=== PATIENT | male | born 1965 | race Caucasian/White ===

== ENCOUNTER 2019-11-03 00:28 | Inpatient (IN) | payer MEDICAID ==
[~2019-11-03] VITALS: Ht 177.8 cm; Wt 81.8 kg
[2019-11-03] VITALS (13 sets, daily range): BP systolic 86–143; BP diastolic 59–100
[~2019-11-03 00:28] MED LIST: FAMO-128 PO
[2019-11-03] MEDS ORDERED: methylPREDNISolone sod succ 125mg/2ml vial IV ONE (00:40)
[2019-11-03] MEDS ORDERED: furosemide 40mg/4ml inj IV ONE (00:40)
[2019-11-03] MEDS ORDERED: ipratropium/albuterol 3ml nebule NEB ONE (00:40)
[2019-11-03] MEDS ORDERED: levoFLOXACIN-Levaquin 750MG/D5 150 ML IV ONE (00:40)
[2019-11-03] MEDS ORDERED: NO HOME MEDS (00:41)
[2019-11-03 01:12] LABS: BASOPHILS % (AUTO) 0.2 % (0-1); EOSINOPHILS % (AUTO) 0.2 % (0-6); HEMATOCRIT 38.3 % (42.0-52.0); HEMOGLOBIN 12.5 g/dl (14.0-17.9); LYMPHOCYTES # (AUTO) 1.1 X10'3 (1.1-4.8); LYMPHOCYTES % (AUTO) 5.9 % (21-51); MEAN CORPUSCULAR HEMOGLOBIN 25.6 PG (27.0-31.0); MEAN CORPUSCULAR HGB CONC 32.8 g/dL (33.0-36.5); MEAN CORPUSCULAR VOLUME 78.1 FL (78-98); MEAN PLATELET VOLUME 6.7 FL (7.4-10.4); MONOCYTES # (AUTO) 1.8 X10'3 (0-0.9); MONOCYTES % (AUTO) 9.4 % (2-12); NEUTROPHILS # (AUTO) 16.1 X10'3 (1.8-7.7); NEUTROPHILS % (AUTO) 84.3 % (42-75); PLATELET COUNT 599 X10'3 (140-440); RED BLOOD COUNT 4.91 X10'6 (4.70-6.10); RED CELL DISTRIBUTION WIDTH 17.9 % (11.5-14.5); WHITE BLOOD COUNT 19.1 X10'3 (4.5-11.0)
[2019-11-03 01:12] LABS: CLARITY,URINE CLEAR (Clear); COLOR,URINE YELLOW (Yellow); GLUCOSE, URINE NEGATIVE (Neg); KETONES,URINE NEGATIVE (Neg); LEUKOCYTE ESTERASE ,URINE NEGATIVE (Neg); NITRITES, URINE NEGATIVE (Neg); OCCULT BLOOD,URINE NEGATIVE (Neg); PH,URINE 6.5 (4.8-8.0); PROTEIN,URINE 100 mg/dl (Neg); UROBILINOGEN,URINE >=8.0 E.U/dL (0.2-1.0)
[2019-11-03 01:17] LABS: UA COLLECTION TYPE URINAL
[2019-11-03 01:18] LABS: RBC,URINE 0-2 /HPF (0-2); WBC,URINE NONE SEEN /HPF (0-4)
[2019-11-03 01:19] LABS: BACTERIA,URINE NONE SEEN /HPF (Neg); SQUAMOUS EPITHELIAL CELL,UR FEW /LPF (FEW)
[2019-11-03 01:25] LABS: URINE AMPHETAMINE SCREEN NEGATIVE (Neg); URINE BARBITUATE SCREEN NEGATIVE (Neg); URINE BENZODIAZEPINES SCREEN NEGATIVE (Neg); URINE CANNABINOID SCREEN POSITIVE (Neg); URINE COCAINE SCREEN NEGATIVE (Neg); URINE METHADONE SCREEN NEGATIVE (Neg); URINE OPIATE SCREEN NEGATIVE (Neg); URINE PHENCYCLIDINE SCREEN NEGATIVE (Neg)
[2019-11-03 01:27] LABS: ALANINE AMINOTRANSFERASE 37 U/L (12-78); ALBUMIN 1.9 G/DL (3.4-5.0); ALBUMIN/GLOBULIN RATIO 0.3 (1.1-1.5); ALKALINE PHOSPHATASE 201 IU/L (46-116); ANION GAP 7 (8-16); ASPARTATE AMINO TRANSFERASE 28 U/L (10-37); BILIRUBIN,TOTAL 1.2 MG/DL (0.1-1.0); BLOOD UREA NITROGEN 15 MG/DL (7-18); BUN/CREATININE RATIO 16.9 (5.4-32.0); CALCIUM 8.5 MG/DL (8.5-10.1); CHLORIDE 101 MMOL/L (99-107); CREATININE 0.89 MG/DL (0.60-1.10); GLUCOSE 127 MG/DL (70-104); POTASSIUM 3.8 MMOL/L (3.5-5.1); SODIUM 136 MMOL/L (135-145); TOTAL CARBON DIOXIDE 27.9 MMOL/L (24-32); TOTAL PROTEIN 7.5 G/DL (6.4-8.2); eGFR 89 ML/MIN
[2019-11-03 01:33] LABS: D-DIMER 4.74 MG/L FEU (0-0.50); PARTIAL THROMBOPLASTIN TIME 27 SECONDS (22-32)
[2019-11-03 01:35] LABS: ABG HCO3 23.5 mmol/L (22.0-26.0); ABG OXYGEN SATURATION 89.7 % (95-98); ABG PCO2 (T) 31.2 mmHg (35.0-45.0); ABG PH (T) 7.495 (7.350-7.450); ABG PO2 (T) 52.2 mmHg (83-108); ALLEN'S TEST POSITIVE; FCOHb 1.9 % (0.5-1.5); FMetHb 0.1 % (0.3-1.12); FO2Hb 87.9 % (94-100)
[2019-11-03] MEDS ORDERED: iohexol 350MG/ML 100ml bottle IV ONE (01:49)
[2019-11-03] MEDS ORDERED: ondansetron/PF 4mg/2ml inj IV PRN (02:50)
[2019-11-03] MEDS ORDERED: magnesium hydroxide 30ml (MOM) UD suspension PO PRN (02:50)
[2019-11-03] MEDS ORDERED: acetaminophen 325mg tablet PO PRN ×2 (02:50)
[2019-11-03] MEDS ORDERED: morphine 2 MG/ML inj. syringe IV PRN ×2 (02:50)
[2019-11-03] MEDS ORDERED: potassium Cl 20 mEq SR tablet PO PRN ×2 (02:50)
[2019-11-03] MEDS ORDERED: magnesium 4gm in 100ml NS 100 ML IV PRN (02:50)
[2019-11-03] MEDS ORDERED: potassium CL 10mEq/100ml bag 100 ML IV PRN ×2 (02:50)
[2019-11-03] MEDS ORDERED: mag hydrox/Alum hydrox/simeth 30ml oral suspension PO PRN (02:50)
[2019-11-03] MEDS ORDERED: magnesium 2GM in 50ml NS 50 ML IV PRN (02:50)
[2019-11-03] MEDS ORDERED: magnesium Cl slow-release 64mg tablet PO PRN (02:50)
[2019-11-03] MEDS ORDERED: ipratropium/albuterol 3ml nebule NEB PRN (03:00)
--- NOTE | 2019-11-03 04:30 | NUR ---
Patient in room PCU 3023. I have received report from Ismael ABREU by telephone from the ER and had the opportunity to ask questions and assume patient care.
--- NOTE | 2019-11-03 05:00 | NUR ---
Patient stable, with all belongings at bedside, and able to ambulate to the bed. Will continue to monitor.
--- NOTE | 2019-11-03 06:35 | NUR ---
Patient in room PCU 3023. I have received report from BRADY Lane and had the opportunity to ask questions and assume patient care.
--- NOTE | 2019-11-03 06:52 | NUR ---
Problems reprioritized. Patient report given, questions answered & plan of care reviewed with Mary ABREU.
[2019-11-03] MEDS: ipratropium/albuterol 3ml nebule NEB SCH ×3 (07:08→19:34)
[2019-11-03] MEDS: predniSONE 20 mg tablet PO SCH (07:46)
[2019-11-03] MEDS: lactobacillus rhamnosus 10,000 MMU CELLS/CAPSULE PO SCH ×2 (07:47→21:44)
[2019-11-03] MEDS: K and/or MAG REPLACEMENT MC SCH ×2 (08:00→21:05)
[2019-11-03] MEDS: enoxaparin 40mg/0.4ml syringe SQ SCH (08:00)
--- NOTE | 2019-11-03 08:00 | NUR ---
Held patient's dose of Lovenox per IR's orders, due to procedure (thoracentesis) being scheduled. aware.
--- NOTE | 2019-11-03 09:16 | NUR ---
Patient ambulated to restroom without problem. Cardiopulmonary at bedside to do Echo.
[2019-11-03] MEDS ORDERED: FLU VACC QS2019-20 36MOS UP/PF 60 MCG/0.5 ML SYRINGE IMVAC ONE (12:30)
[2019-11-03] MEDS ORDERED: pneumococcal 23-VAL P-sac vacc 25 mcg/0.5ml vial IMVAC ONE (12:30)
[2019-11-03 15:15] LABS: LDH,BODY FLUID 524 U/L; TOTAL PROTEIN,BODY FLUID 4.2 G/DL
--- NOTE | 2019-11-03 15:17 | NUR ---
Paged Dr Wood... MESSAGE: Re: Kal Charlton Rm [id number] FYI Per lab the fluid specimen was not on ice, and received 2 hours after collection, so the BF PH was not able to be ran. Thanks Mary [phone]
[2019-11-03 15:18] LABS: GLUCOSE,BODY FLUID 0 MG/DL
[2019-11-03 16:17] LABS: BFAPPEAR TURBID
[2019-11-03 16:18] LABS: BF RBC COUNT 2700 /CU MM; BF WBC COUNT 25750 /CU MM (0-1000); BFCOLOR YELLOW; BFVOLUME 60 ML; LYMPHOCYTES,BODY FLUID 1 %; MONOCYTES,BODY FLUID 1 %; NEUTROPHILS,BODY FLUID 98 %
--- NOTE | 2019-11-03 19:11 | NUR ---
Student Medication Administration: For this medication-pass time frame, all medication were reviewed, dispensed, administered and documented per hospital policy by Delia.
--- NOTE | 2019-11-03 19:11 | NUR ---
Student documentation: I have reviewed and agree with all interventions, assessments performed and documented by BRADY Lin. Addendum: 11/03/19 at 1912 by Mary De León RN Student documentation: I have reviewed and agree with all interventions, assessments performed and documented by Delia.
--- NOTE | 2019-11-03 19:12 | NUR ---
Problems reprioritized. Patient report given, questions answered & plan of care reviewed with BRADY Foss.
[2019-11-03] MEDS: furosemide 20 MG/2 ML vial IV SCH (21:44)
[2019-11-04 02:30] VITALS: BP 121/86
[2019-11-04 06:00] VITALS: BP 135/94
[2019-11-04 06:01] LABS: BASOPHILS % (AUTO) 0.2 % (0-1); EOSINOPHILS % (AUTO) 0 % (0-6); HEMATOCRIT 35.3 % (42.0-52.0); HEMOGLOBIN 11.4 g/dl (14.0-17.9); LYMPHOCYTES # (AUTO) 1.6 X10'3 (1.1-4.8); LYMPHOCYTES % (AUTO) 9.6 % (21-51); MEAN CORPUSCULAR HEMOGLOBIN 25.1 PG (27.0-31.0); MEAN CORPUSCULAR HGB CONC 32.2 g/dL (33.0-36.5); MEAN CORPUSCULAR VOLUME 78.2 FL (78-98); MEAN PLATELET VOLUME 6.8 FL (7.4-10.4); MONOCYTES # (AUTO) 1.4 X10'3 (0-0.9); MONOCYTES % (AUTO) 8.2 % (2-12); PLATELET COUNT 572 X10'3 (140-440); RED BLOOD COUNT 4.52 X10'6 (4.70-6.10); RED CELL DISTRIBUTION WIDTH 18.6 % (11.5-14.5)
[2019-11-04 06:10] LABS: ALBUMIN 1.7 G/DL (3.4-5.0); ANION GAP 6 (8-16); BLOOD UREA NITROGEN 23 MG/DL (7-18); CALCIUM 8.5 MG/DL (8.5-10.1); CHLORIDE 105 MMOL/L (99-107); CREATININE 0.96 MG/DL (0.60-1.10); GLUCOSE 108 MG/DL (70-104); MAGNESIUM 1.9 MG/DL (1.5-2.4); POTASSIUM 3.7 MMOL/L (3.5-5.1); SODIUM 141 MMOL/L (135-145); TOTAL CARBON DIOXIDE 30.2 MMOL/L (24-32); eGFR 81 ML/MIN
--- NOTE | 2019-11-04 06:23 | NUR ---
Problems reprioritized. Patient report given, questions answered & plan of care reviewed with Mary ABREU.
--- NOTE | 2019-11-04 06:40 | NUR ---
Patient in room PCU 3023C. I have received report from Prudence ABREU and had the opportunity to ask questions and assume patient care. Patient laying in bed, eyes closed, left chest tube to suction at 20.
[2019-11-04 06:45] LABS: ANISOCYTOSIS 2+; MICROCYTOSIS 1+; PLATELET ESTIMATE INCREASED; POLYCHROMASIA 1+
[2019-11-04] MEDS: K and/or MAG REPLACEMENT MC SCH ×2 (08:00→20:00)
[2019-11-04] MEDS: levoFLOXACIN-Levaquin 750MG/D5 150 ML IV SCH (08:50)
[2019-11-04] MEDS: furosemide 20 MG/2 ML vial IV SCH ×2 (08:50→20:19)
[2019-11-04] MEDS: predniSONE 20 mg tablet PO SCH (08:51)
[2019-11-04] MEDS: lactobacillus rhamnosus 10,000 MMU CELLS/CAPSULE PO SCH ×2 (08:51→20:16)
[2019-11-04] MEDS: enoxaparin 40mg/0.4ml syringe SQ SCH (08:51)
[2019-11-04] MEDS: ipratropium/albuterol 3ml nebule NEB SCH ×3 (09:08→20:19)
[2019-11-04 11:00] VITALS: BP 133/92
[2019-11-04 15:00] VITALS: BP 130/90
[2019-11-04 18:00] VITALS: BP 127/88
--- NOTE | 2019-11-04 18:22 | NUR ---
Problems reprioritized. Patient report given, questions answered & plan of care reviewed with Lakeisha ABREU.
--- NOTE | 2019-11-04 18:43 | NUR ---
Patient in room PCU 3023. I have received report from BRADY Hernandez and had the opportunity to ask questions and assume patient care.
[2019-11-04] MEDS: metoprolol tartrate 12.5mg (1/2 tablet) PO SCH (20:15)
[2019-11-04 23:00] VITALS: BP 117/82
[2019-11-05 04:17] VITALS: BP 134/94
[2019-11-05 05:56] LABS: BASOPHILS # (AUTO) 0.1 X10'3 (0-0.2); BASOPHILS % (AUTO) 0.4 % (0-1); EOSINOPHILS % (AUTO) 0.1 % (0-6); HEMATOCRIT 33.7 % (42.0-52.0); HEMOGLOBIN 10.9 g/dl (14.0-17.9); LYMPHOCYTES # (AUTO) 1.9 X10'3 (1.1-4.8); LYMPHOCYTES % (AUTO) 13.1 % (21-51); MEAN CORPUSCULAR HEMOGLOBIN 25.7 PG (27.0-31.0); MEAN CORPUSCULAR HGB CONC 32.5 g/dL (33.0-36.5); MEAN CORPUSCULAR VOLUME 79.2 FL (78-98); MEAN PLATELET VOLUME 6.6 FL (7.4-10.4); MONOCYTES # (AUTO) 1.3 X10'3 (0-0.9); MONOCYTES % (AUTO) 8.9 % (2-12); NEUTROPHILS # (AUTO) 11.6 X10'3 (1.8-7.7); NEUTROPHILS % (AUTO) 77.5 % (42-75); PLATELET COUNT 545 X10'3 (140-440); RED BLOOD COUNT 4.25 X10'6 (4.70-6.10); RED CELL DISTRIBUTION WIDTH 18.3 % (11.5-14.5); WHITE BLOOD COUNT 14.9 X10'3 (4.5-11.0)
[2019-11-05 06:00] VITALS: BP 138/101
--- NOTE | 2019-11-05 06:05 | NUR ---
Problems reprioritized. Patient report given, questions answered & plan of care reviewed with BRADY Hernandez.
[2019-11-05 06:35] LABS: ALBUMIN 1.7 G/DL (3.4-5.0); ANION GAP 6 (8-16); BLOOD UREA NITROGEN 22 MG/DL (7-18); BUN/CREATININE RATIO 24.7 (5.4-32.0); CALCIUM 8.1 MG/DL (8.5-10.1); CHLORIDE 104 MMOL/L (99-107); CREATININE 0.89 MG/DL (0.60-1.10); GLUCOSE 95 MG/DL (70-104); MAGNESIUM 1.9 MG/DL (1.5-2.4); POTASSIUM 3.5 MMOL/L (3.5-5.1); SODIUM 141 MMOL/L (135-145); TOTAL CARBON DIOXIDE 30.7 MMOL/L (24-32); eGFR 89 ML/MIN
--- NOTE | 2019-11-05 06:45 | NUR ---
Patient in room PCU 3023C. I have received report from Lakeisha ABREU and had the opportunity to ask questions and assume patient care. Pt laying in bed, eyes closed, no signs of distress, left chest tube to suction at 20.
[2019-11-05] MEDS: K and/or MAG REPLACEMENT MC SCH ×2 (08:00→20:00)
[2019-11-05] MEDS: furosemide 20 MG/2 ML vial IV SCH ×2 (08:58→20:17)
[2019-11-05] MEDS: metoprolol tartrate 12.5mg (1/2 tablet) PO SCH ×2 (08:59→20:17)
[2019-11-05] MEDS: levoFLOXACIN-Levaquin 750MG/D5 150 ML IV SCH (08:59)
[2019-11-05] MEDS: lactobacillus rhamnosus 10,000 MMU CELLS/CAPSULE PO SCH ×2 (08:59→20:18)
[2019-11-05] MEDS: enoxaparin 40mg/0.4ml syringe SQ SCH (09:00)
[2019-11-05] MEDS: predniSONE 20 mg tablet PO SCH (09:00)
[2019-11-05] MEDS: ipratropium/albuterol 3ml nebule NEB SCH ×3 (09:12→20:26)
[2019-11-05 11:00] VITALS: BP 129/88
[2019-11-05 15:00] VITALS: BP 140/92
[2019-11-05 18:00] VITALS: BP 152/110
--- NOTE | 2019-11-05 18:20 | NUR ---
Problems reprioritized. Patient report given, questions answered & plan of care reviewed with Sully ABREU. Pt sitting up in chair at bedside, left chest tube to suction at 20.
[2019-11-05 22:00] VITALS: BP 128/89
[2019-11-06] VITALS (7 sets, daily range): BP systolic 110–145; BP diastolic 64–108
[2019-11-06 06:01] LABS: EOSINOPHILS % (AUTO) 0.2 % (0-6); HEMOGLOBIN 11.7 g/dl (14.0-17.9); MEAN CORPUSCULAR HEMOGLOBIN 24.9 PG (27.0-31.0); MEAN CORPUSCULAR HGB CONC 31.7 g/dL (33.0-36.5); MEAN CORPUSCULAR VOLUME 78.6 FL (78-98); MEAN PLATELET VOLUME 6.5 FL (7.4-10.4)
[2019-11-06 06:05] LABS: BASOPHILS % (AUTO) 0.3 % (0-1); HEMATOCRIT 36.8 % (42.0-52.0); LYMPHOCYTES % (AUTO) 15.4 % (21-51); MONOCYTES # (AUTO) 1.1 X10'3 (0-0.9); MONOCYTES % (AUTO) 8.1 % (2-12); PLATELET COUNT 630 X10'3 (140-440); RED BLOOD COUNT 4.69 X10'6 (4.70-6.10); WHITE BLOOD COUNT 13.1 X10'3 (4.5-11.0)
[2019-11-06 06:14] LABS: ALBUMIN 1.8 G/DL (3.4-5.0); ANION GAP 5 (8-16); BLOOD UREA NITROGEN 20 MG/DL (7-18); BUN/CREATININE RATIO 25.3 (5.4-32.0); CALCIUM 8.4 MG/DL (8.5-10.1); CHLORIDE 103 MMOL/L (99-107); CREATININE 0.79 MG/DL (0.60-1.10); GLUCOSE 89 MG/DL (70-104); MAGNESIUM 1.8 MG/DL (1.5-2.4); POTASSIUM 3.9 MMOL/L (3.5-5.1); SODIUM 139 MMOL/L (135-145); TOTAL CARBON DIOXIDE 31.3 MMOL/L (24-32); eGFR > 90 ML/MIN
--- NOTE | 2019-11-06 06:33 | NUR ---
Problems reprioritized. Patient report given, questions answered & plan of care reviewed with Mary ABREU.
--- NOTE | 2019-11-06 06:34 | NUR ---
Patient in room PCU 3023. I have received report from Sully ABREU and had the opportunity to ask questions and assume patient care.
[2019-11-06] MEDS: levoFLOXACIN-Levaquin 750MG/D5 150 ML IV SCH (07:27)
[2019-11-06] MEDS: lactobacillus rhamnosus 10,000 MMU CELLS/CAPSULE PO SCH ×2 (07:28→20:46)
[2019-11-06] MEDS: enoxaparin 40mg/0.4ml syringe SQ SCH (07:28)
[2019-11-06] MEDS: predniSONE 20 mg tablet PO SCH (07:28)
[2019-11-06] MEDS: furosemide 20 MG/2 ML vial IV SCH (07:29)
[2019-11-06] MEDS: metoprolol tartrate 12.5mg (1/2 tablet) PO SCH ×2 (07:29→20:46)
[2019-11-06] MEDS: ipratropium/albuterol 3ml nebule NEB SCH ×3 (07:57→21:28)
[2019-11-06] MEDS: K and/or MAG REPLACEMENT MC SCH ×2 (08:00→20:00)
[2019-11-06 08:22] LABS: ANISOCYTOSIS 1+; MICROCYTOSIS 1+; PLATELET ESTIMATE INCREASED; TOTAL CELLS COUNTED 100
[2019-11-06 08:23] LABS: POLYCHROMASIA FEW
[2019-11-06] MEDS: furosemide 20MG tablet PO SCH (10:53)
--- NOTE | 2019-11-06 18:25 | NUR ---
Patient in room U 3023. I have received report from Mary Redding RN and had the opportunity to ask questions and assume patient care. Patient is sitting at beside, he just finished dinner. Will continue to monitor.
--- NOTE | 2019-11-06 18:31 | NUR ---
Problems reprioritized. Patient report given, questions answered & plan of care reviewed with BRADY Carson. All patient's needs met at this time.
[2019-11-07 03:00] VITALS: BP 139/97
[2019-11-07] MEDS: HYDROcodone/acetaminophen 5mg/325mg tablet PO PRN ×2 (04:11→09:57)
[2019-11-07 06:00] VITALS: BP 124/92
--- NOTE | 2019-11-07 06:10 | NUR ---
Patient in room PCU 3023. I have received report from Yamileth ABREU and had the opportunity to ask questions and assume patient care.
--- NOTE | 2019-11-07 06:17 | NUR ---
Problems reprioritized. Patient report given, questions answered & plan of care reviewed with Jonathan ABREU.
[2019-11-07 06:34] LABS: EOSINOPHILS % (AUTO) 0.3 % (0-6); MEAN PLATELET VOLUME 6.5 FL (7.4-10.4); WHITE BLOOD COUNT 15.4 X10'3 (4.5-11.0)
[2019-11-07 06:37] LABS: BASOPHILS # (AUTO) 0.1 X10'3 (0-0.2); BASOPHILS % (AUTO) 0.5 % (0-1); HEMOGLOBIN 12.6 g/dl (14.0-17.9); LYMPHOCYTES # (AUTO) 2.6 X10'3 (1.1-4.8); MEAN CORPUSCULAR HEMOGLOBIN 25.3 PG (27.0-31.0); MEAN CORPUSCULAR HGB CONC 32.4 g/dL (33.0-36.5); MEAN CORPUSCULAR VOLUME 78.1 FL (78-98); MONOCYTES # (AUTO) 1.3 X10'3 (0-0.9); MONOCYTES % (AUTO) 8.7 % (2-12); NEUTROPHILS # (AUTO) 11.3 X10'3 (1.8-7.7); NEUTROPHILS % (AUTO) 73.5 % (42-75); PLATELET COUNT 642 X10'3 (140-440); RED BLOOD COUNT 4.99 X10'6 (4.70-6.10); RED CELL DISTRIBUTION WIDTH 18.2 % (11.5-14.5)
[2019-11-07 06:56] LABS: ALBUMIN 1.9 G/DL (3.4-5.0); ANION GAP 6 (8-16); BLOOD UREA NITROGEN 25 MG/DL (7-18); BUN/CREATININE RATIO 29.1 (5.4-32.0); CALCIUM 8.2 MG/DL (8.5-10.1); CHLORIDE 103 MMOL/L (99-107); CREATININE 0.86 MG/DL (0.60-1.10); GLUCOSE 88 MG/DL (70-104); MAGNESIUM 1.8 MG/DL (1.5-2.4); POTASSIUM 3.8 MMOL/L (3.5-5.1); SODIUM 140 MMOL/L (135-145); TOTAL CARBON DIOXIDE 31.5 MMOL/L (24-32); eGFR > 90 ML/MIN
[2019-11-07] MEDS: lactobacillus rhamnosus 10,000 MMU CELLS/CAPSULE PO SCH (07:15)
[2019-11-07] MEDS: furosemide 20MG tablet PO SCH (07:15)
[2019-11-07] MEDS: enoxaparin 40mg/0.4ml syringe SQ SCH (07:16)
[2019-11-07] MEDS: metoprolol tartrate 12.5mg (1/2 tablet) PO SCH (07:16)
[2019-11-07] MEDS: levoFLOXACIN-Levaquin 750MG/D5 150 ML IV SCH (07:16)
[2019-11-07] MEDS: K and/or MAG REPLACEMENT MC SCH (08:00)
[2019-11-07] MEDS ORDERED: predniSONE 20 mg tablet PO SCH (08:00)
[2019-11-07] MEDS: ipratropium/albuterol 3ml nebule NEB SCH ×2 (08:19→13:42)
--- NOTE | 2019-11-07 10:47 | NUR ---
Initial: Patient presented to ED with bilateral pneumonia, empyema, and tachycardia with shortness of breath resolved per MD note. Eating well, 100% PO intake heart healthy diet with fluid restriction of 2 liters per day PO per MD note. Patient is meeting needs with current PO intake. Will continue to follow. Recommend: 1. continue heart healthy diet, fluid restriction per MD 2. weight per rx 3. monitor PO intake 4. bowel care as needed Addendum: 11/07/19 at [address] Amended: Links added.
[2019-11-07 11:00] VITALS: BP 113/78
--- NOTE | 2019-11-07 12:45 | NUR ---
PAGER ID: [phone] MESSAGE: Re: Kal Charlton, Room: [facility] [place], [place]. Chest tube removed and post chest x-ray resulted. -[facility] #[id number] Dr. Rapp paged concerning
[2019-11-07] MEDS ORDERED: FURO-150 PO (13:40)
[2019-11-07] MEDS ORDERED: METO25TA6 PO (13:40)
[2019-11-07] MEDS ORDERED: LISI2.5T2 PO (13:41)
[2019-11-07] MEDS ORDERED: LEVO750T21 PO (13:45)
--- NOTE | 2019-11-07 15:40 | NUR ---
Pt DC'd home. IV removed, canula intact. Te;e-box removed and returned to tele-tech. Pt alert and oriented and vitals WNL at DC. DC paperwork gone over with Pt, allowed Pt to ask question concerning DC and then answered them. New medications called into [facility] in [facility]. Pt will return to [facility] to have a CBC drawn and a chest x-ray on Sunday11/10/19. Pt will make follow up appt with PCP at [facility] in [facility]. Pt's belongings gathered and sent with Pt. Pt wheeled down to lobby/car in wheelchair by student nurse. Pt left in private vehicle for home.
== END 2019-11-07 15:40 | disposition home or self-care (01) | DRG 139 ==
LOC: ER 00:29 → ED HOLD 02:59 → PCU 3S 05:35
PROVIDERS: ADMIT Hospitalist; ATTEND Family Medicine
PROC: BW241ZZ Computerized Tomography (CT Scan) of Chest and Abdomen using Low Osmolar Contrast (ICD-10-PCS; principal; 2019-11-03)
PROC: 0W9B30Z Drainage of Left Pleural Cavity with Drainage Device, Percutaneous Approach (ICD-10-PCS; 2019-11-03)
PROC: 3E02340 Introduction of Influenza Vaccine into Muscle, Percutaneous Approach (ICD-10-PCS; 2019-11-05)
PROC: 3E0234Z Introduction of Serum, Toxoid and Vaccine into Muscle, Percutaneous Approach (ICD-10-PCS; 2019-11-05)
DX: J15.4 Pneumonia due to other streptococci (principal); J86.9 Pyothorax without fistula; F12.90 Cannabis use, unspecified, uncomplicated; I50.20 Unspecified systolic (congestive) heart failure; T38.0X5A Adverse effect of glucocorticoids and synthetic analogues, initial encounter; R59.9 Enlarged lymph nodes, unspecified; J91.8 Pleural effusion in other conditions classified elsewhere; D64.9 Anemia, unspecified; Z23 Encounter for immunization; Z87.891 Personal history of nicotine dependence; Y92.89 Other specified places as the place of occurrence of the external cause; Z86.711 Personal history of pulmonary embolism; Z86.718 Personal history of other venous thrombosis and embolism
CPT/HCPCS: 32557; 36415; 36600; 71045; 71275; 80048; 80053; 80305; 81001; 82803; 82945; 83605; 83615; 83735; 83880; 84145; 84157; 84443; 84484; 85018; 85025; 85379; 85610; 85730; 87040; 87070; 87077; 87081; 87186; 89051; 93005; 93306; 93970; 94640; 94760; 96365; 96375; 99285; G0378; J1650; J1940; J1956; J2930; J7512; Q2037; Q9967

== ENCOUNTER 2020-03-05 12:47 | Inpatient (IN) | payer MEDICAID ==
[~2020-03-05] VITALS: Ht 177.8 cm; Wt 84.0 kg
[~2020-03-05 12:47] MED LIST changes: -FAMO-128 PO; +FURO-150 PO; +LISI2.5T2 PO; +METO25TA6 PO
[2020-03-05 13:26] LABS: BASOPHILS # (AUTO) 0.1 X10'3 (0-0.2); BASOPHILS % (AUTO) 0.7 % (0-1); EOSINOPHILS % (AUTO) 0.5 % (0-6); HEMOGLOBIN 11.6 g/dl (14.0-17.9); LYMPHOCYTES # (AUTO) 1.3 X10'3 (1.1-4.8); LYMPHOCYTES % (AUTO) 15.8 % (21-51); MEAN CORPUSCULAR HEMOGLOBIN 23.4 PG (27.0-31.0); MEAN CORPUSCULAR HGB CONC 31.5 g/dL (33.0-36.5); MEAN CORPUSCULAR VOLUME 74.4 FL (78-98); MONOCYTES # (AUTO) 0.9 X10'3 (0-0.9); MONOCYTES % (AUTO) 11.6 % (2-12); NEUTROPHILS # (AUTO) 5.8 X10'3 (1.8-7.7); NEUTROPHILS % (AUTO) 71.4 % (42-75); PLATELET COUNT 301 X10'3 (140-440); RED BLOOD COUNT 4.97 X10'6 (4.70-6.10); RED CELL DISTRIBUTION WIDTH 18.7 % (11.5-14.5); WHITE BLOOD COUNT 8.2 X10'3 (4.5-11.0)
[2020-03-05 13:41] LABS: ALANINE AMINOTRANSFERASE 25 U/L (12-78); ALBUMIN 2.9 G/DL (3.4-5.0); ALBUMIN/GLOBULIN RATIO 0.7 (1.1-1.5); ALKALINE PHOSPHATASE 148 IU/L (46-116); ANION GAP 8 (8-16); ASPARTATE AMINO TRANSFERASE 22 U/L (10-37); BILIRUBIN,TOTAL 1.3 MG/DL (0.1-1.0); BLOOD UREA NITROGEN 19 MG/DL (7-18); CALCIUM 8.3 MG/DL (8.5-10.1); CHLORIDE 110 MMOL/L (99-107); CREATININE 1.12 MG/DL (0.60-1.10); GLUCOSE 116 MG/DL (70-104); POTASSIUM 3.6 MMOL/L (3.5-5.1); SODIUM 144 MMOL/L (135-145); TOTAL CARBON DIOXIDE 25.9 MMOL/L (24-32); TOTAL PROTEIN 7.2 G/DL (6.4-8.2); eGFR 68 ML/MIN
[2020-03-05] MEDS ORDERED: furosemide 10 MG/1 ML 10ml inj IV ONE (13:55)
[2020-03-05] MEDS ORDERED: nitroGLYCERIN 0.4mg SUBLingual tab SL ONE (13:55)
[2020-03-05] MEDS ORDERED: nitroGLYCERIN 0.4mg SUBLingual tab SL SCH (13:55)
[2020-03-05] MEDS ORDERED: NO HOME MEDS (14:05)
--- NOTE | 2020-03-05 14:11 | NUR ---
updated vitals, gave lasix and nitro, will continue to monitor
[2020-03-05 14:21] LABS: ETHANOL < 0.010 GM/DL (0.0-0.010)
[2020-03-05 14:57] LABS: CLARITY,URINE CLEAR (Clear); COLOR,URINE YELLOW (Yellow); GLUCOSE, URINE NEGATIVE (Neg); KETONES,URINE NEGATIVE (Neg); LEUKOCYTE ESTERASE ,URINE NEGATIVE (Neg); NITRITES, URINE NEGATIVE (Neg); OCCULT BLOOD,URINE NEGATIVE (Neg); PH,URINE 6.5 (4.8-8.0); PROTEIN,URINE 30 mg/dl (Neg)
[2020-03-05] MEDS ORDERED: mag hydrox/Alum hydrox/simeth 30ml oral suspension PO ONE (15:00)
[2020-03-05 15:02] LABS: UA COLLECTION TYPE CLN CATCH MIDSTREAM
[2020-03-05 15:03] LABS: URINE AMPHETAMINE SCREEN NEGATIVE (Neg); URINE BARBITUATE SCREEN NEGATIVE (Neg); URINE BENZODIAZEPINES SCREEN NEGATIVE (Neg); URINE CANNABINOID SCREEN POSITIVE (Neg); URINE COCAINE SCREEN NEGATIVE (Neg); URINE METHADONE SCREEN NEGATIVE (Neg); URINE OPIATE SCREEN NEGATIVE (Neg); URINE PHENCYCLIDINE SCREEN NEGATIVE (Neg)
[2020-03-05 15:04] LABS: BACTERIA,URINE FEW /HPF (Neg); MUCUS STRANDS FEW /LPF (Neg); RBC,URINE 0-2 /HPF (0-2); SQUAMOUS EPITHELIAL CELL,UR FEW /LPF (FEW); WBC,URINE 0-4 /HPF (0-4)
[2020-03-05] MEDS ORDERED: mag hydrox/Alum hydrox/simeth 30ml oral suspension PO PRN (15:10)
[2020-03-05] MEDS ORDERED: HYDROcodone/acetaminophen 5mg/325mg tablet PO PRN (15:10)
[2020-03-05] MEDS ORDERED: ondansetron/PF 4mg/2ml inj IV PRN (15:10)
[2020-03-05] MEDS ORDERED: magnesium hydroxide 30ml (MOM) UD suspension PO PRN (15:10)
[2020-03-05] MEDS ORDERED: morphine 2 MG/ML inj. syringe IV PRN ×2 (15:10)
[2020-03-05] MEDS ORDERED: acetaminophen 325mg tablet PO PRN ×2 (15:10)
[2020-03-05 15:31] LABS: MICROCYTOSIS 1+; PLATELET ESTIMATE NORMAL
[2020-03-05 15:32] LABS: ANISOCYTOSIS 2+; HYPOCHROMASIA 1+
[2020-03-05 15:33] LABS: POLYCHROMASIA FEW
--- NOTE | 2020-03-05 16:40 | NUR ---
Received report from estevan RN in the er. Had the opportunity to ask questions. Awaiting patients arrival.
[2020-03-05 17:15] VITALS: BP 166/110
--- NOTE | 2020-03-05 17:15 | NUR ---
Patient has arrived from ER, awake an alert. Vitals O2 99%, HR 98, BP 166/110, RR 18, pain 0 Temp 98.8 MRSA nasal swab obtained. Patient questions have been answered. Patient placed on tele monitor.
--- NOTE | 2020-03-05 17:58 | NUR ---
Orientee documentation: I have reviewed and agree with all interventions, assessments performed and documented by BRADY Starr.
[2020-03-05 18:00] VITALS: BP 169/112
--- NOTE | 2020-03-05 18:30 | NUR ---
Problems reprioritized. Patient report given, questions answered & plan of care reviewed with BRADY Cano. Patient stable at transfer of care.
--- NOTE | 2020-03-05 18:57 | NUR ---
Patient in room [place] [address]. I have received report from Jonathan ABREU and had the opportunity to ask questions and assume patient care. Addendum: 03/05/20 at 1900 by Rachael Scott RN Patient in room [place] [address]. I have received report from Ro ABREU and had the opportunity to ask questions and assume patient care. Correction for above nurse to nurse report.
[2020-03-05] MEDS: metoprolol tartrate 50mg tablet PO SCH (19:18)
[2020-03-05] MEDS: furosemide 20 MG/2 ML vial IV SCH (19:19)
[2020-03-05] MEDS: HYDROcodone/acetaminophen 10/325mg tab PO PRN (19:20)
[2020-03-05 22:00] VITALS: BP 133/102
[2020-03-06] MEDS: HYDROcodone/acetaminophen 10/325mg tab PO PRN (00:42)
[2020-03-06 01:39] LABS: BASOPHILS # (AUTO) 0.1 X10'3 (0-0.2); EOSINOPHILS # (AUTO) 0.1 X10'3 (0-0.9); EOSINOPHILS % (AUTO) 0.8 % (0-6); LYMPHOCYTES # (AUTO) 1.6 X10'3 (1.1-4.8); LYMPHOCYTES % (AUTO) 17.6 % (21-51); MEAN PLATELET VOLUME 7.1 FL (7.4-10.4); MONOCYTES # (AUTO) 1.3 X10'3 (0-0.9); MONOCYTES % (AUTO) 13.8 % (2-12); NEUTROPHILS # (AUTO) 6.1 X10'3 (1.8-7.7); NEUTROPHILS % (AUTO) 66.8 % (42-75); PLATELET COUNT 284 X10'3 (140-440); RED BLOOD COUNT 5.14 X10'6 (4.70-6.10); WHITE BLOOD COUNT 9.2 X10'3 (4.5-11.0)
[2020-03-06 01:50] LABS: ALBUMIN 2.8 G/DL (3.4-5.0); ANION GAP 6 (8-16); BLOOD UREA NITROGEN 23 MG/DL (7-18); BUN/CREATININE RATIO 19.3 (5.4-32.0); CALCIUM 8.3 MG/DL (8.5-10.1); CHLORIDE 107 MMOL/L (99-107); CREATININE 1.19 MG/DL (0.60-1.10); GLUCOSE 108 MG/DL (70-104); POTASSIUM 3.6 MMOL/L (3.5-5.1); SODIUM 144 MMOL/L (135-145); TOTAL CARBON DIOXIDE 30.6 MMOL/L (24-32); eGFR 63 ML/MIN
[2020-03-06 02:10] LABS: HEMATOCRIT 38.1 % (42.0-52.0); HEMOGLOBIN 12.5 g/dl (14.0-17.9); MEAN CORPUSCULAR HEMOGLOBIN 24.2 PG (27.0-31.0); MEAN CORPUSCULAR HGB CONC 32.7 g/dL (33.0-36.5); MEAN CORPUSCULAR VOLUME 74.2 FL (78-98); RED CELL DISTRIBUTION WIDTH 18.3 % (11.5-14.5)
[2020-03-06 04:16] LABS: ANISOCYTOSIS 2+; HYPOCHROMASIA 1+; MICROCYTOSIS 1+; PLATELET ESTIMATE NORMAL; POLYCHROMASIA FEW
[2020-03-06 06:00] VITALS: BP 144/79
--- NOTE | 2020-03-06 06:14 | NUR ---
Problems reprioritized. Patient report given, questions answered & plan of care reviewed with Yuni ABREU.
--- NOTE | 2020-03-06 06:30 | NUR ---
Patient in room PCU 3026. I have received report from Rachael ABREU and had the opportunity to ask questions and assume patient care.
[2020-03-06] MEDS ORDERED: nitroGLYCERIN 0.4mg/hour patch TD SCH (08:00)
[2020-03-06] MEDS: lisinopril 10 MG tablet PO SCH (08:17)
[2020-03-06] MEDS: metoprolol tartrate 50mg tablet PO SCH ×2 (08:17→19:55)
[2020-03-06] MEDS: enoxaparin 40mg/0.4ml syringe SUBCUT SCH (08:18)
[2020-03-06] MEDS: furosemide 20 MG/2 ML vial IV SCH ×2 (08:37→19:54)
[2020-03-06 08:39] VITALS: BP 144/79
[2020-03-06 10:44] LABS: OCCULT BLOOD STOOL NEGATIVE (Neg)
[2020-03-06 11:00] VITALS: BP 111/75
--- NOTE | 2020-03-06 11:34 | NUR ---
received orders from Dr. Herrera for Vascular Ultrasound to E for swelling, Paged Vascular, will continue to monitor.
[2020-03-06 15:00] VITALS: BP 117/82
--- NOTE | 2020-03-06 18:26 | NUR ---
Problems reprioritized. Patient report given, questions answered & plan of care reviewed with Mark RN.
[2020-03-06 19:00] VITALS: BP 137/83
[2020-03-06 23:00] VITALS: BP 118/79
[2020-03-07 03:00] VITALS: BP 113/85
[2020-03-07 06:00] VITALS: BP 140/111
--- NOTE | 2020-03-07 06:00 | NUR ---
Patient in room PCU 3021. I have received report from Mark and had the opportunity to ask questions and assume patient care.
[2020-03-07 06:20] LABS: BASOPHILS # (AUTO) 0.1 X10'3 (0-0.2); EOSINOPHILS # (AUTO) 0.1 X10'3 (0-0.9); HEMATOCRIT 37.7 % (42.0-52.0); HEMOGLOBIN 11.7 g/dl (14.0-17.9); LYMPHOCYTES # (AUTO) 1.8 X10'3 (1.1-4.8); LYMPHOCYTES % (AUTO) 24.4 % (21-51); MEAN CORPUSCULAR HEMOGLOBIN 23.5 PG (27.0-31.0); MEAN CORPUSCULAR VOLUME 75.9 FL (78-98); MONOCYTES # (AUTO) 0.9 X10'3 (0-0.9); MONOCYTES % (AUTO) 12.7 % (2-12); NEUTROPHILS # (AUTO) 4.5 X10'3 (1.8-7.7); NEUTROPHILS % (AUTO) 60.9 % (42-75); PLATELET COUNT 297 X10'3 (140-440); RED BLOOD COUNT 4.97 X10'6 (4.70-6.10); RED CELL DISTRIBUTION WIDTH 19.1 % (11.5-14.5); WHITE BLOOD COUNT 7.5 X10'3 (4.5-11.0)
[2020-03-07 06:23] LABS: ALBUMIN 2.9 G/DL (3.4-5.0); ANION GAP 9 (8-16); BLOOD UREA NITROGEN 23 MG/DL (7-18); BUN/CREATININE RATIO 21.3 (5.4-32.0); CALCIUM 8.3 MG/DL (8.5-10.1); CHLORIDE 106 MMOL/L (99-107); CREATININE 1.08 MG/DL (0.60-1.10); GLUCOSE 85 MG/DL (70-104); POTASSIUM 3.4 MMOL/L (3.5-5.1); SODIUM 143 MMOL/L (135-145); eGFR 71 ML/MIN
--- NOTE | 2020-03-07 06:26 | NUR ---
Problems reprioritized. Patient report given, questions answered & plan of care reviewed with Mary ABREU.
--- NOTE | 2020-03-07 06:32 | NUR ---
Patient in room PCU 3021. I have received report from Mark ABREU and had the opportunity to ask questions and assume patient care. Patient resting in bed, patient offers no complaints, will continue to monitor.
[2020-03-07 07:06] LABS: ANISOCYTOSIS 2+; HYPOCHROMASIA 1+; MICROCYTOSIS 1+; PLATELET ESTIMATE NORMAL; POLYCHROMASIA 1+
[2020-03-07] MEDS: furosemide 20 MG/2 ML vial IV SCH ×2 (07:38→19:41)
[2020-03-07] MEDS: lisinopril 10 MG tablet PO SCH (07:40)
[2020-03-07] MEDS: metoprolol tartrate 50mg tablet PO SCH ×2 (07:41→19:41)
[2020-03-07] MEDS: enoxaparin 40mg/0.4ml syringe SUBCUT SCH (07:41)
[2020-03-07] MEDS ORDERED: potassium Cl 20 mEq SR tablet PO STA (09:44)
--- NOTE | 2020-03-07 10:08 | NUR ---
promotional table spacer PAGER ID: [phone] MESSAGE: [id number] Latesha. Order for 24 hour telemonitoring has would you like to renew this order? [phone] Pippa
--- NOTE | 2020-03-07 10:46 | NUR ---
Spoke with Dr. Herrera, patient's tele can be d/c'd
[2020-03-07 11:00] VITALS: BP 123/75
--- NOTE | 2020-03-07 11:40 | NUR ---
PAGER ID: [phone] MESSAGE: Elia [id number]. Patient had BM and it is not very loose. Would you like to cancel the c. diff order or send it anyway? Lisa [phone]
--- NOTE | 2020-03-07 12:02 | NUR ---
Spoke with Dr. Herrera about patient's stool sample being to formed to be tested for c. diff. He gave me an order to cancel c. diff test at this time mentioning that if diarrhea returned to please send a sample to the lab.
--- NOTE | 2020-03-07 16:58 | NUR ---
patient ambulated 600ft with no assistive devices, no SOB, no problems with RN standby
--- NOTE | 2020-03-07 17:51 | NUR ---
Orientee documentation: I have reviewed and agree with interventions, assessments performed and documented by Pippa ABREU. [place] Medication Administration: For this medication-pass time frame,medication were reviewed, dispensed, administered and documented per hospital policy by Pippa ABREU .
[2020-03-07 18:00] VITALS: BP 121/78
--- NOTE | 2020-03-07 18:00 | NUR ---
Problems reprioritized. Patient report given, questions answered & plan of care reviewed with Ethel [].
--- NOTE | 2020-03-07 18:19 | NUR ---
Problems reprioritized. Patient report given, questions answered & plan of care reviewed with Lakeisha ABREU. Patient stable at transfer of care.
--- NOTE | 2020-03-07 18:28 | NUR ---
Patient in room PCU 3026. I have received report from Pippa ABREU and had the opportunity to ask questions and assume patient care.
--- NOTE | 2020-03-07 18:37 | NUR ---
Patient in room PCU 3026. I have received report from BRADY Gonzalez and had the opportunity to ask questions and assume patient care.
[2020-03-07 22:00] VITALS: BP 111/84
[2020-03-08 04:35] VITALS: BP 149/97
--- NOTE | 2020-03-08 05:52 | NUR ---
I have read and agree with all documentation completed by BRADY Deleon.
[2020-03-08 06:00] VITALS: BP 136/90
[2020-03-08 06:15] LABS: BASOPHILS # (AUTO) 0.1 X10'3 (0-0.2); BASOPHILS % (AUTO) 1.3 % (0-1); EOSINOPHILS # (AUTO) 0.1 X10'3 (0-0.9); EOSINOPHILS % (AUTO) 0.7 % (0-6); HEMATOCRIT 39.2 % (42.0-52.0); HEMOGLOBIN 12.2 g/dl (14.0-17.9); LYMPHOCYTES # (AUTO) 1.8 X10'3 (1.1-4.8); LYMPHOCYTES % (AUTO) 26.3 % (21-51); MEAN CORPUSCULAR VOLUME 74.3 FL (78-98); MONOCYTES # (AUTO) 0.9 X10'3 (0-0.9); MONOCYTES % (AUTO) 13.6 % (2-12); NEUTROPHILS # (AUTO) 3.9 X10'3 (1.8-7.7); NEUTROPHILS % (AUTO) 58.1 % (42-75); PLATELET COUNT 304 X10'3 (140-440); RED BLOOD COUNT 5.27 X10'6 (4.70-6.10); RED CELL DISTRIBUTION WIDTH 18.9 % (11.5-14.5); WHITE BLOOD COUNT 6.8 X10'3 (4.5-11.0)
--- NOTE | 2020-03-08 06:16 | NUR ---
Problems reprioritized. Patient report given, questions answered & plan of care reviewed with Lisa ABREU and Pippa ABREU.
[2020-03-08 06:28] LABS: ALBUMIN 2.9 G/DL (3.4-5.0); ANION GAP 10 (8-16); BLOOD UREA NITROGEN 26 MG/DL (7-18); BUN/CREATININE RATIO 22.8 (5.4-32.0); CALCIUM 8.4 MG/DL (8.5-10.1); CHLORIDE 106 MMOL/L (99-107); CREATININE 1.14 MG/DL (0.60-1.10); GLUCOSE 86 MG/DL (70-104); SODIUM 143 MMOL/L (135-145); TOTAL CARBON DIOXIDE 26.6 MMOL/L (24-32); eGFR 67 ML/MIN
--- NOTE | 2020-03-08 07:26 | NUR ---
Patient in room PCU 3014. I have received report from Lakeisha ABREU and had the opportunity to ask questions and assume patient care. Patient resting in bed at this time, offers no complaints, will continue to monitor.
[2020-03-08] MEDS: furosemide 20 MG/2 ML vial IV SCH (08:33)
[2020-03-08 08:34] VITALS: BP_SYST 150
[2020-03-08] MEDS: lisinopril 10 MG tablet PO SCH (08:34)
[2020-03-08] MEDS: metoprolol tartrate 50mg tablet PO SCH (08:34)
[2020-03-08] MEDS: enoxaparin 40mg/0.4ml syringe SUBCUT SCH (08:35)
[2020-03-08] MEDS ORDERED: FURO-150 PO (08:54)
[2020-03-08] MEDS ORDERED: LISI10TA4 PO (08:54)
[2020-03-08] MEDS ORDERED: METO50TA16 PO (08:54)
[2020-03-08 09:16] LABS: ANISOCYTOSIS 2+; MICROCYTOSIS 1+; PLATELET ESTIMATE NORMAL
[2020-03-08 09:18] LABS: POLYCHROMASIA FEW
[2020-03-08 10:54] LABS: PARTIAL THROMBOPLASTIN TIME 29 SECONDS (22-32)
[2020-03-08] MEDS ORDERED: iohexol 350MG/ML 100ml bottle IV ONE ×2 (11:48→12:08)
--- NOTE | 2020-03-08 11:59 | NUR ---
PAGER ID: [phone] MESSAGE: [id number]. Can we house convenience this patient as he has no tele order? Thank you, Lisa [phone]
[2020-03-08] MEDS ORDERED: iohexol 350 MG/ML 50ML vial IV ONE (12:08)
--- NOTE | 2020-03-08 13:40 | NUR ---
PAGER ID: [phone] MESSAGE: Elia [id number]. FYI: CTA results are in [facility]. [place] [id number]
--- NOTE | 2020-03-08 14:28 | NUR ---
PAGER ID: [phone] MESSAGE: [id number], Latesha. Dr. Patino called and said CT was negative and he can go home from his stand point, would you like us to continue with the discharge from this am? Pippa [phone]
--- NOTE | 2020-03-08 15:51 | NUR ---
Spoke with Dr. Herrera and he said we are clear d/c patient
--- NOTE | 2020-03-08 16:30 | NUR ---
Patient was d/c home at this time. Patient reviewed d/c instructions before signing. PIV was removed with cannula intact. New RX were called into [facility]. Patient left with friend in private vehicle.
== END 2020-03-08 16:32 | disposition home or self-care (01) | DRG 194 ==
LOC: ER 12:47 → ED HOLD 15:08 → EDBEDREQ 16:10 → PCU 3S 16:56
PROVIDERS: ADMIT Internal Medicine; ATTEND Internal Medicine
DX: I11.0 Hypertensive heart disease with heart failure (principal); I27.20 Pulmonary hypertension, unspecified; F12.90 Cannabis use, unspecified, uncomplicated; D50.9 Iron deficiency anemia, unspecified; E87.6 Hypokalemia; Z79.899 Other long term (current) drug therapy; Z87.891 Personal history of nicotine dependence; Z86.711 Personal history of pulmonary embolism; Z86.718 Personal history of other venous thrombosis and embolism; I50.23 Acute on chronic systolic (congestive) heart failure
CPT/HCPCS: 36415; 71045; 73706; 80048; 80053; 80305; 80320; 81001; 82272; 83605; 83880; 84484; 85025; 85610; 85730; 87040; 87081; 93005; 93971; 99285; G0378; J1650; J1940; Q9967